=== PATIENT | female | born 1985 | race Two or more races ===

== ENCOUNTER 2018-05-19 14:06 | Emergency (ER) | payer OTHER ==
--- NOTE | 2018-05-19 14:29 | PDOC ---
Rapid Medical Evaluation Chief Complaint: Wound Time Seen by Provider: 05/19/18 14:28 Medical Evaluation: I have performed a brief in-person evaluation of this patient. The patient presents with a chief complaint of: open wound to left hand x 5 months Pertinent physical exam findings: wound - closed - to left palm I have ordered the following: nothing The patient will proceed to the ED for further evaluation. Discharge Disposition - Diagnosis Open wound, hand - Referrals - Patient Instructions - Post Discharge Activity
[2018-05-19 14:32] VITALS: BP 127/89; PULSE 77; TEMP 98; BMI 24.7
--- NOTE | 2018-05-19 15:18 | PDOC ---
History of Present Illness - General Chief Complaint: Wound Stated Complaint: WOUND Time Seen by Provider: 05/19/18 14:28 History Source: Patient Exam Limitations: No Limitations - History of Present Illness Initial Comments: 05/19/18 15:04 32-year-old female presents to ED with complaints of gross to her left hand has worsened in severity over the past 2 weeks. Patient states initially started as a darkened raised area and now has opened with a tender intermittently bleeding area without edema, or purulent drainage. Timing/Duration: getting worse, changing over time Severity: mild Associated Symptoms: reports: denies symptoms Past History - Travel Traveled outside of the country in the last 30 days: No - Past Medical History Allergies/Adverse Reactions: Allergies Allergy/AdvReac Type Severity Reaction Status Date / Time No Known Allergies Allergy Verified 05/19/18 14:32 Home Medications: Ambulatory Orders NK [No Known Home Medication] 05/19/18 - Suicide/Smoking/Psychosocial Hx Smoking History: Never smoked Have you smoked in the past 12 months: No Information on smoking cessation initiated: No Hx Alcohol Use: No Drug/Substance Use Hx: No Patient Lives Alone: No Lives with/in: parents Review of Systems - Review of Systems Able to Perform ROS?: Yes Constitutional: No: Symptoms Reported Integumentary: Yes: See HPI Neurological: No: Symptoms reported Hematologic/Lymphatic: No: Symptoms Reported *Physical Exam - Vital Signs Last Vital Signs Temp Pulse Resp BP Pulse Ox 98.0 F 77 16 127/89 100 05/19/18 14:27 05/19/18 14:27 05/19/18 14:27 05/19/18 14:27 05/19/18 14:27 - Physical Exam General Appearance: Yes: Nourished, Appropriately Dressed. No: Apparent Distress Extremity: positive: Other (Noted 1 x 1 cm raised pink mass to the palmar aspect of first finger base. Immediate surrounding skin hyperpigmented no increased warmth and minimal serosanguineous drainage noted upon pressure.) Neurologic: positive: Motor Strength 5/5 Medical Decision Making - Medical Decision Making 05/19/18 15:00 Patient with wound of to the left hand. Patient states initially started while she was and for the past week 6 weeks has worsened in severity. Patient states has not followed up with the PCP or has taken medication for discomfort. Patient denies injury to the affected area. Patient with likely external seroma. Wound culture was obtained. Patient will be given surgical consultation *DC/Admit/Observation/Transfer Diagnosis at time of Disposition: Open wound, hand - Discharge Dispostion Disposition: HOME Condition at time of disposition: Good - Referrals Referrals: Pilo Alcantara MD [Staff Physician] - - Patient Instructions Printed Discharge Instructions: DI for Wound Infection Additional Instructions: Please take medication as prescribed. Please follow-up with referred surgeon. Keep area clean and covered. - Post Discharge Activity
== END 2018-05-19 15:27 | disposition home or self-care (01) ==
LOC: JERFT 14:06
DX: S61.402A Unspecified open wound of left hand, initial encounter (principal); X58.XXXA Exposure to other specified factors, initial encounter; Y93.9 Activity, unspecified; Y92.89 Other specified places as the place of occurrence of the external cause; Y99.8 Other external cause status
CPT/HCPCS: 87070; 87186; 87205; 99281-25

== ENCOUNTER 2021-02-08 02:36 | Emergency (ER) | payer SELFPAY ==
[2021-02-08 02:51] VITALS: BP 141/89; PULSE 76; TEMP 98.2
[2021-02-08] MEDS ORDERED: CLINDAMYCIN HCL 300 MG CAPSULE PO ONE (05:17)
[2021-02-08] MEDS ORDERED: ACETAMINOPHEN 325 MG TABLET (FP) PO ONE (05:17)
[2021-02-08] MEDS ORDERED: IBUPROFEN 600 MG TABLET (FP) PO ONE ×2 (05:17→05:37)
[2021-02-08] MEDS ORDERED: ACETAMINOPHEN 325 MG TABLET (FP) ONE (05:36)
[2021-02-08] MEDS ORDERED: CLINDAMYCIN HCL 150 MG CAPSULE (FP) ONE (05:37)
== END 2021-02-08 06:01 | disposition home or self-care (01) ==
LOC: JER 02:36
DX: R68.84 Jaw pain (principal)
CPT/HCPCS: 99283-25